=== PATIENT | male | born 1985 | race Caucasian/White ===

== ENCOUNTER 2019-12-12 08:34 | Emergency (ER) | payer OTHER, SELFPAY ==
[2019-12-12 08:51] VITALS: BP 126/82; PULSE 76; RESP 18; TEMP 37.2; O2SAT 99; BMI 60.3
--- NOTE | 2019-12-12 09:28 | CT_ITS ---
EXAMINATION: CT HEAD WITHOUT CONTRAST CLINICAL INFORMATION: Pain over the right eye. COMPARISON: None. TECHNIQUE: Contiguous axial imaging was performed from the skull base to vertex without intravenous contrast. This CT examination was performed using dose optimization techniques as appropriate, variously including the following: * Automated exposure control * Adjustment of mA and/or kV according to patient size (this includes techniques or standardized protocols for targeted exams where dose is matched to indication/reason for exam; i.e. extremities or head) Use of iterative reconstruction technique DLP: 725 mGy-cm. FINDINGS: There is no evidence of acute intracranial hemorrhage or territorial infarction. No abnormal mass effect or midline shift is seen. Daniels to white matter differentiation is well preserved. No extra-axial fluid collections are identified. No hydrocephalus. [place] cisterna magna No significant volume loss. There is no abnormal attenuation within the brain parenchyma. The osseous structures and soft tissues are normal. The mastoid air cells are well aerated. There is prior left orbital floor reconstruction. There is complete opacification of the left maxillary sinus. The bilateral frontal sinuses are fully opacified. Near complete opacification of the ethmoid air cells. The nasal cavity is also partially opacified. The globes are intact. The orbits are otherwise unremarkable. IMPRESSION: No acute intracranial pathology. Extensive left-sided paranasal sinus disease with occlusion of both frontal sinuses as well. Cannot exclude an underlying polyp, as there is also partial opacification of the nasal cavity.
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
[2019-12-12] MEDS: 0.9 % Sodium Chloride 1,000 ML 999 ML IVCONT (10:13)
[2019-12-12] MEDS: Metoclopramide HCl 10 MG/2 ML VIAL IVPUSH (10:14)
[2019-12-12] MEDS: diphenhydrAMINE HCL 50 MG/ML VIAL 25 MG IVPUSH (10:14)
[2019-12-12] MEDS: Ketorolac Tromethamine 30 MG/ML VIAL IVPUSH (10:14)
[2019-12-12 10:21] LABS: MANUAL DIFF FLAG NO
[2019-12-12 10:31] LABS: Basophils Absolute Auto 0.1 X10*3/uL (0.0-0.2); Basophils Percent Auto 0.6 % (0-2); Eosinophils Absolute Auto 0.1 X10*3/uL (0.0-0.4); Eosinophils Percent Auto 0.6 % (0-4); Hematocrit 43.8 % (42-52); Hemoglobin 14.8 g/dl (14.0-18.0); Imm Gran Abs Auto 0.05 X10*3/uL (0.00-0.03); Imm Gran Pct Auto 0.5 % (0.0-0.4); Lymphocytes Absolute Auto 1.1 X10*3/uL (1.2-4.9); Mean Corpuscular HGB Conc 33.8 g/dl (31.0-36.0); Mean Corpuscular Hemoglobin 29.7 pg (27.0-33.0); Mean Platelet Volume 10.3 fL (9.4-12.4); Monocytes Absolute Auto 0.5 X10*3/uL (0.1-1.2); Monocytes Percent Auto 4.2 % (2-11); Neutrophils Absolute Auto 9.1 X10*3/uL (2.0-8.3); Neutrophils Percent Auto 84.1 % (45-73); Platelet Count 315 X10*3/uL (160-400); Red Blood Count 4.98 X10*6/uL (4.60-5.80); Red Cell Distribution Width 11.8 % (11.0-16.0); White Blood Count 10.8 X10*3/uL (4.8-10.8)
[2019-12-12 10:34] LABS: Prothrombin Time 11.8 SEC (10.8-13.0)
[2019-12-12 10:46] LABS: Alanine Aminotransferase 29 U/L (0-40); Albumin Level 4.7 g/dL (3.5-5.0); Alkaline Phosphatase 61 U/L (39-117); Anion Gap 12 (12-20); Aspartate Amino Transferase 22 U/L (5-37); Bilirubin Direct 0.4 mg/dL (0.0-0.5); Bilirubin Total 1.2 mg/dL (0.0-1.0); Blood Urea Nitrogen 13 mg/dL (9-16); Carbon Dioxide 30 mmol/L (22-29); Chloride 103 mmol/L (96-108); Creatinine Clr Calc Pharmacy 178.7; Estimated Glomerular Filt Rate > 60; Glucose Random 118 mg/dL (60-115); Potassium 4.6 mmol/l (3.3-5.1); Sodium 140 mmol/L (135-145); Total Protein 7.6 g/dL (6.5-8.0)
[2019-12-12 10:47] LABS: Magnesium 2.1 mg/dL (1.6-2.6)
[2019-12-12] MEDS: dexAMETHasone sod phosphate 4 MG/ML VIAL 10 MG IVPUSH (10:56)
== END 2019-12-12 12:00 | disposition home or self-care (01) ==
PROVIDERS: Physician Assistant Medical; Emergency Provider Emergency Medicine
DX: J32.9 Chronic sinusitis, unspecified (principal); G44.009 Cluster headache syndrome, unspecified, not intractable
CPT/HCPCS: 36415; 70450; 80048; 80076; 83735; 85025; 85610; 96361; 96374; 96375; 96376; 99284; J1100; J1200; J1885; J2765